=== PATIENT | male | born 1985 | race Caucasian/White ===

== ENCOUNTER → 2020-09-24 | Outpatient (CLI) | payer OTHER ==
--- NOTE | 2020-09-24 16:26 | XR ---
Frontal and lateral spine HISTORY: Pain for 6 days following shoveling Frontal and lateral views of the spine are submitted on a total 7 images Cervical, thoracic, lumbar vertebral bodies show preserved height and bone mineralization. There is m ild spinal curvature present. Disc spaces are remarkable for loss of height at L5-S1, L3-4, mid to lo wer thoracic spine levels. There is multilevel spondylosis in the thoracic spine, lumbar spine. IMPRESSION: Mild degenerative disc disease. Mild spinal curvature.
== END | disposition home or self-care (01) ==
LOC: RADXRMAIN 15:21
DX: M51.16 Intervertebral disc disorders with radiculopathy, lumbar region (principal); M50.10 Cervical disc disorder with radiculopathy, unspecified cervical region; M51.14 Intervertebral disc disorders with radiculopathy, thoracic region; M43.8X2 Other specified deforming dorsopathies, cervical region; M43.8X4 Other specified deforming dorsopathies, thoracic region; M43.8X6 Other specified deforming dorsopathies, lumbar region
CPT/HCPCS: 72082

== ENCOUNTER 2021-01-31 09:50 | Day surgery (SDC) | payer OTHER ==
[2021-01-29 09:40] VITALS: BMI 37.8
[~2021-01-31 09:50] MED LIST: LACTATED RINGERS 1,000 ML IV SCH; LIDOCAINE 1% (10MG/ML) FOR IV START INTRADERMA PRN
[2021-01-31 10:30] VITALS: RESP 16; TEMP 98.6
[2021-01-31] MEDS ORDERED: LIDOCAINE 1% INJ 10MG/ML (20 ML MDV) ONE (11:18)
[2021-01-31] MEDS ORDERED: PROPOFOL 10 MG/ML 20 ML VIAL IV ONE (11:18)
--- NOTE | 2021-01-31 11:21 | P.GSHP ---
History of Present Illness H&P Date: 01/31/21 Chief Complaint: GERD This a 35-year-old male referred from Dr. watson. Patient has GERD that is refractory to medical therapy. He presents today for EGD. Past Medical History Past Medical History: GERD/Reflux, Sleep Apnea/CPAP/BIPAP Additional Past Medical History / Comment(s): pericarditis 3 yrs ago, sever obstructive sleep apnea, History of Any Multi-Drug Resistant Organisms: None Reported Past Surgical History: Orthopedic Surgery Additional Past Surgical History / Comment(s): rt carpal tunnel, rt elbow surgery Past Anesthesia/Blood Transfusion Reactions: No Reported Reaction Smoking Status: Never smoker - Past Family History Father Family Medical History: Cancer Medications and Allergies Home Medications Medication Instructions Recorded Confirmed Type Famotidine [Pepcid] 20 mg PO BID 01/29/21 01/31/21 History Pantoprazole Sodium 20 mg PO BID 01/29/21 01/29/21 History Allergies Allergy/AdvReac Type Severity Reaction Status Date / Time adhesive Allergy red skin Verified 01/31/21 10:30 tobacoo Allergy Unknown Uncoded 01/31/21 10:30 Surgical - Exam Vital Signs Temp Pulse Resp BP Pulse Ox 98.6 F 76 16 133/85 100 01/31/21 10:28 01/31/21 10:28 01/31/21 10:28 01/31/21 10:28 01/31/21 10:28 - General well developed, well nourished, no distress - Eyes PERRL - ENT normal pinna - Neck no masses - Respiratory normal expansion, normal respiratory effort - Cardiovascular Rhythm: regular - Abdomen Abdomen: soft, non tender Assessment and Plan Assessment: GERD. We'll perform EGD.
--- NOTE | 2021-01-31 11:28 | P.OP ---
Date of Procedure: 01/31/21 Preoperative Diagnosis: GERD Postoperative Diagnosis: Antral gastritis Mild esophagitis Small sliding hiatal hernia Procedure(s) Performed: EGD Anesthesia: MAC Surgeon: Patricio Cowan Pathology: other (Antrum, esophagus) Condition: stable Disposition: PACU Description of Procedure: The patient's placed on the endoscopy table in the lateral position. He received IV sedation. The gastroscope oropharynx passed in the esophagus and stomach. Scope some placed through the pylorus. The first and second portion of the duodenum appeared normal. Scope was then brought back the antrum this was mildly inflamed. A biopsies performed. Scope was unretroflexed and remainder the stomach appeared normal. There was a small sliding hiatal hernia. The GE junction was at 38 cm. The distal esophagus appeared inflamed a biopsies performed. The proximal esophagus appeared normal. Due to the minimal endoscopic findings reflux a HIDA scan was ordered.
[2021-01-31 11:50] VITALS: BP 109/61; PULSE 75
== END 2021-01-31 12:07 | disposition home or self-care (01) ==
LOC: ORWHC2ENDO 09:50
PROVIDERS: ATTEND Surgery
DX: K29.50 Unspecified chronic gastritis without bleeding (principal); K44.9 Diaphragmatic hernia without obstruction or gangrene; K21.00 Gastro-esophageal reflux disease with esophagitis, without bleeding; G47.33 Obstructive sleep apnea (adult) (pediatric); Z98.890 Other specified postprocedural states; Z80.9 Family history of malignant neoplasm, unspecified; Z79.899 Other long term (current) drug therapy; Z91.09 Other allergy status, other than to drugs and biological substances
CPT/HCPCS: 88305; 43239; J2001; J2704

== ENCOUNTER → 2021-02-01 | Outpatient (CLI) | payer OTHER ==
--- NOTE | 2021-02-01 09:46 | NM ---
EXAMINATION TYPE: NM hepatobiliary w CCK DATE OF EXAM: 02/01/2021 COMPARISON: NONE HISTORY: Indigestion TECHNIQUE: After the intravenous administration of 4.3 mCi Tc 99m Mebrofenin hepatobiliary scintigrap hy is performed. Immediate images post injection. FINDINGS: There is satisfactory initial accumulation of tracer by the liver. The gallbladder is visualized wit hin 12 minutes. The small bowel activity is noted within 56 minutes. At one hour CCK was administer ed, patient was injected with 2.4 mcg of Kinevac, and gallbladder ejection fraction is calculated at 97%. IMPRESSION: Increased ejection fraction suggests hypercontractile state.
== END | disposition home or self-care (01) ==
LOC: RADNMMAIN 06:49
PROVIDERS: ATTEND Surgery
DX: K30 Functional dyspepsia (principal)
CPT/HCPCS: 78227; A9537; J2805

== ENCOUNTER 2021-02-13 08:21 | Day surgery (SDC) | payer OTHER ==
[2021-02-12 10:21] VITALS: BMI 36.9
[~2021-02-13 08:21] MED LIST changes: +ACETAMINOPHEN TAB 500 MG TAB PO PRN; +DEXAMETHASONE SOD PHOSPHATE 4 MG/ML 1 ML VIAL IV ONE; +HEPARIN SODIUM,PORCINE/PF 5,000 UNIT/0.5 ML SYRINGE SQ PRN; -LACTATED RINGERS 1,000 ML IV SCH; +MIDAZOLAM 2 MG/2 ML VIAL IV PRN
[2021-02-13] MEDS: LACTATED RINGERS 1,000 ML IV SCH ×2 (09:10→09:50)
[2021-02-13] MEDS: ONDANSETRON 4 MG/2 ML VIAL IVP ONE ×2 (09:36→11:49)
--- NOTE | 2021-02-13 10:19 | P.GSHP ---
History of Present Illness H&P Date: 02/13/21 Chief Complaint: Right upper quadrant pain This is a 31 for a male who's had complaints of right quadrant pain. His recent HIDA scan shows abnormal ejection fraction. He presents today for laparoscopic cholecystectomy Past Medical History Past Medical History: GERD/Reflux, Sleep Apnea/CPAP/BIPAP Additional Past Medical History / Comment(s): pericarditis 3 yrs ago, severe obstructive sleep apnea, History of Any Multi-Drug Resistant Organisms: None Reported Past Surgical History: Hernia Repair, Orthopedic Surgery Additional Past Surgical History / Comment(s): rt carpal tunnel, rt elbow surgery, EGD Past Anesthesia/Blood Transfusion Reactions: No Reported Reaction Smoking Status: Never smoker - Past Family History Father Family Medical History: Cancer Medications and Allergies Home Medications Medication Instructions Recorded Confirmed Type Famotidine [Pepcid] 20 mg PO BID 01/29/21 02/13/21 History Pantoprazole Sodium 20 mg PO BID 01/29/21 02/13/21 History Allergies Allergy/AdvReac Type Severity Reaction Status Date / Time adhesive Allergy red skin Verified 02/13/21 08:49 tobacoo Allergy Dyspnea Uncoded 02/13/21 08:49 Surgical - Exam Vital Signs Temp Pulse Resp BP Pulse Ox 98.2 F 74 18 152/86 98 02/13/21 08:55 02/13/21 08:55 02/13/21 08:55 02/13/21 08:55 02/13/21 08:55 - General well developed, well nourished, no distress - Eyes PERRL - ENT normal pinna - Neck no masses - Respiratory normal expansion - Cardiovascular Rhythm: regular - Abdomen Abdomen: soft, non tender Assessment and Plan Assessment: Chronically status. We'll perform laparoscopic cholecystectomy
[2021-02-13] MEDS ORDERED: MIDAZOLAM 2 MG/2 ML VIAL ONE (10:40)
[2021-02-13] MEDS ORDERED: KETAMINE 10 MG/ML 20 ML VIAL ONE (10:40)
[2021-02-13] MEDS ORDERED: fentaNYL (PF) 50 MCG/ML 2 ML AMP ONE (10:40)
[2021-02-13] MEDS ORDERED: LIDOCAINE 1% INJ 10MG/ML (20 ML MDV) ONE (10:40)
[2021-02-13] MEDS ORDERED: KETOROLAC 15 MG/ML 1 ML VIAL ONE (10:40)
[2021-02-13] MEDS ORDERED: SUCCINYLCHOLINE CHLORIDE 100 MG/5 ML SYR IV ONE (10:40)
[2021-02-13] MEDS ORDERED: PROPOFOL 10 MG/ML 20 ML VIAL IV ONE (10:40)
[2021-02-13] MEDS ORDERED: GLYCOPYRROLATE 0.2 MG/ML 2 ML VIAL ONE (10:40)
[2021-02-13] MEDS ORDERED: NEOSTIGMINE 1 MG/ML 10 ML VIAL ONE (10:40)
[2021-02-13] MEDS ORDERED: ROCURONIUM 10 MG/ML (5 ML VIAL) IV ONE (10:40)
[2021-02-13] MEDS ORDERED: BUPIVACAINE (PF) 0.25% 30 ML VIAL SQ ONE ×2 (10:42→10:58)
[2021-02-13 11:32] VITALS: TEMP 98
[2021-02-13] MEDS: HYDROmorphone 0.5 MG/0.5 ML SYRINGE IVP PRN ×3 (11:33→11:46)
--- NOTE | 2021-02-13 11:34 | P.OP ---
Date of Procedure: 02/13/21 Preoperative Diagnosis: Cholecystitis Postoperative Diagnosis: Cholecystitis Procedure(s) Performed: Laparoscopic cholecystectomy Anesthesia: OLU Surgeon: Patricio Cowan Estimated Blood Loss (ml): 5 Pathology: other (Gallbladder) Condition: stable Disposition: PACU Description of Procedure: The patient was placed on the operating table. The patient received a general endotracheal tube anesthesia. The patients abdomen was prepped and draped in the usual sterile fashion. Through an infraumbilical stab incision, the fascia of the anterior abdominal wall was grasped with a pair of Kochers and then the Veress needle was placed in the peritoneal cavity. Position of the Veress needle was confirmed with positive drop test. The abdomen was then insufflated. After adequate insufflation, the 10 mm trocar was placed in the peritoneal cavity. Following this the laparoscope was placed in the peritoneal cavity. The patient was placed in the head-up, right side up position and then a 5 mm trocar was placed in the right lateral and right subcostal position under direct visualization. A 8 mm trocar was placed in the epigastric position. The gallbladder was grasped in the fundus and infundibulum. Traction on the gallbladder was placed in the lateral and the cephalad positions. The triangle of Calot was visualized.. The cystic duct was bluntly dissected until the union of the cystic duct and common bile duct was seen. A critical view of safety was achieved. The cystic duct was then divided and sealed with the Harmonic scissors. A PDS Endoloop was then placed throughout the cystic duct stump. The cystic artery divided and sealed with the Harmonic scissors. The gallbladder was then removed from the liver bed using Harmonic scissors. The gallbladder was then extracted through the epigastric port site. Operative field was checked for any bleeding spots and Harmonic scissors was used to coagulate the liver bed. The abdomen was irrigated. The trocars were removed. The skin was closed using interrupted 3-0 Vicryl suture. Dermabond dressing were applied. The patient tolerated the procedure well.
[2021-02-13 12:04] VITALS: RESP 16
[2021-02-13 12:42] VITALS: BP 122/74; PULSE 71
== END 2021-02-13 13:56 | disposition home or self-care (01) ==
LOC: OR 08:21
PROVIDERS: ATTEND Surgery
DX: K81.9 Cholecystitis, unspecified (principal); K21.9 Gastro-esophageal reflux disease without esophagitis; G47.33 Obstructive sleep apnea (adult) (pediatric); Z79.899 Other long term (current) drug therapy
CPT/HCPCS: 88304; 47562; J2250; J1100; J2710; J0690; J2405; J2001; J3010; J1885; J0330; J2704; J1170; J1644

== ENCOUNTER 2021-03-26 08:45 | Observation (INO) | payer OTHER ==
[2021-03-26] MEDS ORDERED: HEPARIN SODIUM,PORCINE/PF 5,000 UNIT/0.5 ML SYRINGE SQ STA (09:33)
[2021-03-26] MEDS ORDERED: ACETAMINOPHEN TAB 500 MG TAB PO STA (09:34)
[2021-03-26] MEDS ORDERED: LACTATED RINGERS 1,000 ML IV ONE ×2 (09:46→12:52)
[2021-03-26] MEDS ORDERED: LIDOCAINE 1% (10MG/ML) FOR IV START INTRADERMA ONE (09:46)
[2021-03-26] MEDS ORDERED: ONDANSETRON 4 MG/2 ML VIAL ONE (09:57)
--- NOTE | 2021-03-26 10:03 | P.GSHP ---
History of Present Illness H&P Date: 03/26/21 Chief Complaint: GERD This is a 35-year-old male referred from Dr. Rudy Giordano. MinuThe patient has had long-standing problems with reflux esophagitis. The patient underwent recent EGD is found have evidence of esophagitis. Patient has been well informed on the procedure of laparoscopic Lydia fundoplication. The patient is aware the risk of the conversion to the open procedure, risk of injury to the stomach, liver and spleen. The patient is also a risk of recurrent GERD and dysphagia symptoms. The patient understands there is a postoperative diet of full liquids for 2 weeks after surgery. Past Medical History Past Medical History: GERD/Reflux, Sleep Apnea/CPAP/BIPAP Additional Past Medical History / Comment(s): pericarditis 3 yrs ago, severe obstructive sleep apnea - APAP. History of Any Multi-Drug Resistant Organisms: None Reported Past Surgical History: Cholecystectomy, Hernia Repair, Orthopedic Surgery Additional Past Surgical History / Comment(s): rt carpal tunnel, rt elbow ulnar nerve surgery, EGD, Lt inguinal hernia x2 Past Anesthesia/Blood Transfusion Reactions: Postoperative Nausea & Vomiting (PONV) Additional Past Anesthesia/Blood Transfusion Reaction / Comment(s): felt nauseated after last surgery, possibly R/T juice Smoking Status: Never smoker - Past Family History Father Family Medical History: Cancer Additional Family Medical History / Comment(s): skin cancers Medications and Allergies Home Medications Medication Instructions Recorded Confirmed Type Famotidine [Pepcid] 20 mg PO BID 01/29/21 03/26/21 History Pantoprazole Sodium 20 mg PO BID 01/29/21 03/26/21 History Allergies Allergy/AdvReac Type Severity Reaction Status Date / Time adhesive Allergy red skin Verified 03/22/21 15:06 tobacoo Allergy Dyspnea Uncoded 03/22/21 15:06 Surgical - Exam Vital Signs Temp Pulse Resp BP Pulse Ox 98.2 F 79 16 145/78 98 03/26/21 09:34 03/26/21 09:34 03/26/21 09:34 03/26/21 09:34 03/26/21 09:34 - General well developed, well nourished, no distress - Eyes PERRL - ENT normal pinna - Neck no masses - Respiratory normal expansion - Cardiovascular Rhythm: regular - Abdomen Abdomen: soft, non tender Assessment and Plan Assessment: GERD. We'll perform arthroscopic Lydia fundal plication.
[2021-03-26] MEDS ORDERED: GLYCOPYRROLATE 0.2 MG/ML 2 ML VIAL ONE (10:23)
[2021-03-26] MEDS ORDERED: LIDOCAINE 1% INJ 10MG/ML (20 ML MDV) ONE (10:23)
[2021-03-26] MEDS ORDERED: KETAMINE 10 MG/ML 20 ML VIAL ONE (10:23)
[2021-03-26] MEDS ORDERED: NEOSTIGMINE 1 MG/ML 10 ML VIAL ONE (10:23)
[2021-03-26] MEDS ORDERED: KETOROLAC 15 MG/ML 1 ML VIAL ONE (10:23)
[2021-03-26] MEDS ORDERED: fentaNYL (PF) 50 MCG/ML 2 ML AMP ONE (10:23)
[2021-03-26] MEDS ORDERED: ROCURONIUM 10 MG/ML (5 ML VIAL) IV ONE (10:23)
[2021-03-26] MEDS ORDERED: PROPOFOL 10 MG/ML 20 ML VIAL IV ONE (10:23)
[2021-03-26] MEDS ORDERED: HYDROmorphone (PF) 1 MG/ML ONE (10:23)
[2021-03-26] MEDS ORDERED: SUCCINYLCHOLINE CHLORIDE VIAL 200 MG/10 ML VIAL IV ONE (10:23)
[2021-03-26] MEDS ORDERED: MIDAZOLAM 2 MG/2 ML VIAL ONE (10:23)
[2021-03-26] MEDS ORDERED: SODIUM CHLORIDE 0.9% 50 ML with ceFAZolin 2,000 MG IV ONE ×2 (10:25)
[2021-03-26] MEDS ORDERED: BUPIVACAINE (PF) 0.5% 30 ML VIAL SQ ONE (10:51)
--- NOTE | 2021-03-26 11:25 | P.OP ---
Date of Procedure: 03/26/21 Preoperative Diagnosis: GERD Postoperative Diagnosis: GERD Procedure(s) Performed: Laparoscopic Lydia fundoplication Anesthesia: OLU Surgeon: Patricio Cowan Estimated Blood Loss (ml): 5 Pathology: none sent Condition: stable Disposition: PACU Description of Procedure: The patient was placed on the operating table in the supine position. The patient received general anesthesia. And was placed in dorsal lithotomy position. The patient was prepped and draped in the usual sterile fashion. The skin incision sites were anesthetized with 1% local Xylocaine. The skin was incised in the left periumbilical area and then using a blade less 5 mm trocar under direct visualization panel cavity was entered. After adequate insufflation the laparoscope was then placed into the peritoneal cavity. Next a 5 mm trochars placed in the right epigastric position. Another 5 millimeter trocar the right lateral position. Another 5 millimeter trocar in the left lateral position a 5 mm trocar is placed in the left epigastric position. And then the initial 5 mm trocar was exchanged for a 10 mm trocar. The left lateral lobe liver was retracted. The hernia was seen. The crural defect was then dissected using the Harmonic scissors device. A 360 crural dissection was per formed the esophagus stomach was reduced back into the peritoneal Cavity. The crural defect was then closed using 2-0 Ethibond suture. Next the fundus of the stomach was mobilized using the [place] scissors device. and then a 58-Maltese bougie dilator was placed oropharynx passed into the esophagus and stomach the fundal plication wrap was then performed by grasping the fundus posteriorly and bringing it around the esophagus and stomach fundoplication was then performed using 2-0 Ethibond suture. Care was taken that the fundal location rested over top of the intra-abdominal esophagus. There was no injury seen to the stomach or esophagus. The dilator was then withdrawn. The abdomen was irrigated there is no bleeding seen. The trochars were then withdrawn and then skin incision sites were closed using 3-0 Monocryl suture Steri-Strips are applied. Patient thought procedure well and sent to recovery room in stable condition.
[2021-03-26] MEDS ORDERED: HYDROmorphone 0.5 MG/0.5 ML SYRINGE IVP ONE ×2 (12:06→12:47)
[2021-03-26] MEDS ORDERED: SIMETHICONE 40 MG/0.6 ML DROPS 2,000 MG/30 ML BOTTLE PO ONE (12:40)
[2021-03-26 14:54] VITALS: BMI 37.8
[2021-03-26] MEDS: SIMETHICONE 40 MG/0.6 ML DROPS 2,000 MG/30 ML BOTTLE PO SCH ×3 (15:40→20:38)
--- NOTE | 2021-03-26 15:55 | FL ---
EXAMINATION TYPE: FL esophagus cervic/pharynx DATE OF EXAM: 03/26/2021 HISTORY: Postop COMPARISON: NONE TECHNIQUE: A single contrast esophagram is performed utilizing air and barium. A total of 22 second s of fluoroscopic time was utilized during procedure and for images obtained. FINDINGS: The esophagus shows normal motility and emptying into the stomach. No evidence of hiatal hernia or s tricture noted. No significant gastroesophageal reflux was seen during real time performance of this study. There is mild delay at the level of the GE junction. Suggestion of a trace amount of free intr aperitoneal air likely postsurgical. Correlate clinically. IMPRESSION: 1. No evidence of extravasation or obstruction. Very mild delay at the level of the GE junction.
[2021-03-26] MEDS: HYDROmorphone 1 MG/ML 1 ML SYRINGE IVP PRN ×2 (16:02→20:35)
[2021-03-27] MEDS: HYDROmorphone 1 MG/ML 1 ML SYRINGE IVP PRN (04:04)
[2021-03-27] MEDS: SIMETHICONE 40 MG/0.6 ML DROPS 2,000 MG/30 ML BOTTLE PO SCH ×2 (08:03→12:20)
[2021-03-27] MEDS ORDERED: ENOXAPARIN 40 MG/0.4 ML SYRINGE SQ SCH (09:00)
[2021-03-27] MEDS: HYDROcodone/APAP 5-325MG 1 EACH TAB PO PRN ×2 (09:23→13:50)
--- NOTE | 2021-03-27 13:32 | P.DS ---
Providers Expected date of discharge: 03/27/21 Attending physician: Patricio Cowan Consults: 03/26/21 11:25 Consult Physician Routine Consulting Provider: Rudy Park Consult Reason/Comments: Management Do you want consulting provider notified?: Yes Primary care physician: Rudy Park Hospital Course: Discharge diagnosis 1. GERD status post laparoscopic Lydia fundoplication Hospital course This is a 35-year-old male with a known history of GERD. He is status post laparoscopic Lydia fundoplication. Patient tolerated surgery well. Upper GI showed no evidence of extravasation or obstruction. Very mild delay at the level of the GE junction. Patient is tolerating his Lydia clear liquid diet. His pain is controlled. He is up and ambulating. He denies any difficulty with swallowing. He is having flatus. He is afebrile. He is stable for discharge. Please refer to chart for any further details. Physician Plumber Supervisor note has been reviewed by physician. Signing provider agrees with the documented findings, assessment, and plan of care. Patient Condition at Discharge: Stable Plan - Discharge Summary Discharge Rx Participant: Yes New Discharge Prescriptions: New Docusate [Colace] 100 mg PO BID #30 capsule Simethicone 40 mg/0.6 ml Drops [Mylicon Drops] 40 mg PO QID ml HYDROcodone/APAP 5-325MG [Bend 5-325] 1 tab PO Q6HR PRN 3 Days #12 tab PRN Reason: Pain Discontinued Pantoprazole Sodium 20 mg PO BID Famotidine [Pepcid] 20 mg PO BID Discharge Medication List Docusate [Colace] 100 mg PO BID #30 capsule 03/27/21 [Rx] HYDROcodone/APAP 5-325MG [Bend 5-325] 1 tab PO Q6HR PRN 3 Days #12 tab 03/27/21 [Rx] Simethicone 40 mg/0.6 ml Drops [Mylicon Drops] 40 mg PO QID ml 03/27/21 [Rx] Follow up Appointment(s)/Referral(s): Rudy Park DO [Primary Care Provider] - 1 Week Patricio Cowan MD [STAFF PHYSICIAN] - 1 Week Activity/Diet/Wound Care/Special Instructions: No driving while taking Bend No lifting over 10 pounds You may shower. No soaking or tub baths for 2 weeks Very light activity until you are reevaluated at your follow up appointment with your surgeon Discharge Disposition: HOME SELF-CARE
[2021-03-27 14:29] VITALS: BP 136/83; PULSE 90; RESP 17; TEMP 98.4
--- NOTE | 2021-03-27 20:34 | P.CONS ---
History of Present Illness - Reason for Consult Consult date: 03/27/21 Medical management Requesting physician: Patricio Cowan - Chief Complaint Status post laparoscopic Lydia - History of Present Illness This is a 35-year-old gentleman with past medical history of gastroesophageal reflux disease, obstructive sleep apnea, uses CPAP, pericarditis, postop nausea and vomiting, recent laparoscopic cholecystectomy on 02/13/2021 and is status p ost laparoscopic Justino fundoplication. Tolerated procedure well passed esophagram and currently on Lydia clear liquid diet. Tolerating well, denies nausea vomiting or diarrhea. Passing flatus. Denies chest pain, palpitations or shortness of breath. Afebrile. Review of Systems ROS Statement: Those systems with pertinent positive or pertinent negative responses have been documented in the HPI. ROS Other: All systems not noted in ROS Statement are negative. Past Medical History Past Medical History: GERD/Reflux, Sleep Apnea/CPAP/BIPAP Additional Past Medical History / Comment(s): pericarditis 3 yrs ago, severe obstructive sleep apnea - APAP. History of Any Multi-Drug Resistant Organisms: None Reported Past Surgical History: Cholecystectomy, Hernia Repair, Orthopedic Surgery Additional Past Surgical History / Comment(s): rt carpal tunnel, rt elbow ulnar nerve surgery, EGD, Lt inguinal hernia x2 Past Anesthesia/Blood Transfusion Reactions: Postoperative Nausea & Vomiting (PONV) Additional Past Anesthesia/Blood Transfusion Reaction / Comm: felt nauseated after last surgery, possibly R/T juice Past Psychological History: No Psychological Hx Reported Smoking Status: Never smoker Past Alcohol Use History: Occasional Past Drug Use History: None Reported - Past Family History Father Family Medical History: Cancer Additional Family Medical History / Comment(s): skin cancers Medications and Allergies Home Medications Medication Instructions Recorded Confirmed Type Docusate [Colace] 100 mg PO BID #30 capsule 03/27/21 Rx HYDROcodone/APAP 5-325MG [[place]ot 1 tab PO Q6HR PRN 3 Days #12 tab 03/27/21 Rx 5-325] Simethicone 40 mg/0.6 ml Drops 40 mg PO QID ml 03/27/21 Rx [Mylicon Drops] Allergies Allergy/AdvReac Type Severity Reaction Status Date / Time adhesive Allergy red skin Verified 03/22/21 15:06 tobacoo Allergy Dyspnea Uncoded 03/22/21 15:06 Physical Exam Vitals: Vital Signs Temp Pulse Pulse Pulse Resp BP BP 03/27/21 06:47 98.2 F 92 18 148/75 03/27/21 02:45 98.5 F 89 19 129/82 03/26/21 19:16 78 17 03/26/21 19:00 98.6 F 95 19 120/85 03/26/21 16:16 95 17 03/26/21 15:00 85 18 126/78 03/26/21 14:45 68 18 121/80 03/26/21 14:30 81 18 121/81 03/26/21 14:15 90 18 124/83 03/26/21 14:00 98 18 123/87 03/26/21 13:45 100 18 132/90 03/26/21 13:30 77 18 166/91 03/26/21 13:00 95 17 140/85 03/26/21 12:30 68 16 127/79 03/26/21 12:15 62 16 141/81 03/26/21 12:00 76 16 147/88 03/26/21 11:45 73 16 147/88 03/26/21 11:29 98.0 F 80 18 126/68 03/26/21 09:34 98.2 F 79 16 145/78 Pulse Ox 03/27/21 06:47 97 03/27/21 02:45 96 03/26/21 19:16 03/26/21 19:00 98 03/26/21 16:16 03/26/21 15:00 98 03/26/21 14:45 96 03/26/21 14:30 95 03/26/21 14:15 97 03/26/21 14:00 92 L 03/26/21 13:45 92 L 03/26/21 13:30 97 03/26/21 13:00 98 03/26/21 12:30 97 03/26/21 12:15 97 03/26/21 12:00 99 03/26/21 11:45 99 03/26/21 11:29 99 03/26/21 09:34 98 Intake and Output 03/26/21 03/27/21 03/27/21 22:59 06:59 14:59 Other: Voiding Method Toilet Toilet # Voids 3 5 # Bowel Movements 0 PHYSICAL EXAM: VITAL SIGNS: [As above] GENERAL: Sitting up in bed, no acute distress HEENT: Conjunctivae normal. eyes normal. NECK: No JVD. No thyroid enlargement. No LNs CARDIOVASCULAR: S1, S2 regular. No murmur RESPIRATION: Breath sounds diminished in the bases. No rhonchi or crackles. No bronchial breathing. ABDOMEN: Soft, status post surgery ,Bowel sounds heard. LEGS: No edema. no swelling PSYCHIATRY: Alert and oriented X3, mood and affect normal. NERVOUS SYSTEM: Cranial N 2-12 grossly normal. Moves all 4 limbs. No focal deficits. Strength and sensation grossly intact.. Skin: Warm and dry, no rash Assessment and Plan Assessment: Gastroesophageal reflux disease, status post laparoscopic Lydia fundoplication Recent laparoscopic cholecystectomy 02/13/2021 Morbid obesity, BMI 37.8 Obstructive sleep apnea Plan: Continue on current medication regime ,monitoring and symptomatically treatment. Increase ambulation as tolerated. Lydia diet/pain management as per primary/surgery. Patient is expecting to be discharged home today. Follow-up with PCP, Dr. Park in 1 week. Thank you for the consult. The impression and plan of care has been dictated as directed. : I performed a history and examination of this patient, discussed the same with the dictator. I agree with the dictator's note ,documented as a scribe. Any additional findings or plans will be noted.
== END 2021-03-27 14:56 | disposition home or self-care (01) ==
LOC: OR 08:45 → 4SSUR 11:19 → OR 22:09 → 4SSUR 03-27 14:06
PROVIDERS: ADMIT Surgery; ATTEND Surgery
DX: K21.9 Gastro-esophageal reflux disease without esophagitis (principal); G47.33 Obstructive sleep apnea (adult) (pediatric); Z91.048 Other nonmedicinal substance allergy status; Z90.49 Acquired absence of other specified parts of digestive tract; Z86.79 Personal history of other diseases of the circulatory system; Z98.890 Other specified postprocedural states; Z80.8 Family history of malignant neoplasm of other organs or systems
CPT/HCPCS: 74210; 43280; G0378 ×2; J2250; J0330; J2710; J2405; J0690; J2001; J1650; J3010; J1170 ×3; J1885; J2704; J1644

== ENCOUNTER → 2022-03-04 | Outpatient (CLI) | payer OTHER ==
--- NOTE | 2022-03-04 09:42 | CT ---
EXAMINATION TYPE: CT sinus wo con CT DLP: 618.10 mGycm, Automated exposure control for dose reduction was used. DATE OF EXAM: 03/04/2022 9:24 AM COMPARISON: None. CLINICAL INDICATION:Male, 36 years old with history of J32.9 , Chronic sinusitis CONTRAST: None. TECHNIQUE: Multiple thin axial images were obtained through the paranasal sinuses without the use of IV contrast. Additional coronal and sagittal reformatted images were submitted for evaluation. FINDINGS: Frontal sinuses: Normally developed and aerated. Frontal Recess: Clear Modified [place]-Ino Score: Right 0 = 0% Opacified, Left 0 = 0% Opacified Maxillary Sinuses: Normally developed, mucosal retention cysts bilaterally. Modified Donovan-Blo[place] Score: Right 1 = 1-25% Opacified, Left 1 = 1-25% Opacified Maxillary Infundibula([facility]): Clear, No Ramesh cells identified. Modified [place]-Ino Score: Right 0 = Completely patent, Left 0 = Completely patent Ethmoid sinuses: Normally developed and aerated. Ethmoidal notch: Unprotected anterior ethmoidal neeta ry bilaterally. Modified [place] Score: Anterior Right 0 = 0% Opacified, Left 0 = 0% Opacified Posterior Right 0 = 0% Opacified, Left 0 = 0% Opacified Sphenoid sinuses: Normally developed and aerated. There is sellar sphenoid sinus pneumatization witho ut evidence of dehiscence. No dehiscence of carotid canal. No evidence of optic nerve dehiscence wit hin the sphenoid sinus. No evidence of Onodi cells. Sphenoethmoidal recesses: Clear. Modified [place] Score: Right 0 = 0% Opacified, Left 0 = 0% Opacified. Nasal septum: Within normal limits. Nasal Turbinates: Within normal limits. Mastoid air cells & middle ears: The air cells are clear. The middle ears are grossly unremarkable. Modified Soft tissues & Brain: Partially seen without gross abnormality. Globes are intact. Other: Cribriform plate demonstrates symmetric Keros classification type 2 cribriform plate. No evidence of bony dehiscence of skull base. Lamina papyracea is intact without evidence of remote orbital fracture or orbital prolapse into the e thmoid sinus. IMPRESSION: 1. No significant mucosal sinus disease, bilateral maxillary sinus is retention cysts. 2. The ostiomeatal units, frontonasal and sphenoethmoidal recesses are clear. 3. Opacification burden of 2/54 on the Modified Donovan-Ino scoring system.
== END | disposition home or self-care (01) ==
LOC: RADCTMAIN 09:07
PROVIDERS: ATTEND Otolaryngology
DX: J32.9 Chronic sinusitis, unspecified (principal)
CPT/HCPCS: 70486

== ENCOUNTER 2022-04-30 06:13 | Day surgery (SDC) | payer OTHER ==
[2022-04-28 11:49] VITALS: BMI 38.4
[~2022-04-30 06:13] MED LIST changes: -ACETAMINOPHEN TAB 500 MG TAB PO PRN; +DEXAMETHASONE SOD PHOSPHATE 4 MG/ML 1 ML VIAL IV PRN; +FAMOTIDINE 20 MG/2 ML VIAL IV PRN; -HEPARIN SODIUM,PORCINE/PF 5,000 UNIT/0.5 ML SYRINGE SQ PRN; +LACTATED RINGERS 1,000 ML IV SCH; +ONDANSETRON 4 MG/2 ML VIAL IVP ONE; +ONDANSETRON 4 MG/2 ML VIAL IVP PRN
[2022-04-30] MEDS: OXYMETAZOLINE 0.05% NASL SPRAY 1 SPRAY BOTTLE EA NOSTRIL PRN ×5 (07:00→07:20)
[2022-04-30] MEDS ORDERED: SUCCINYLCHOLINE CHLORIDE 200 MG/10 ML VIAL IV ONE (07:20)
[2022-04-30] MEDS ORDERED: MIDAZOLAM 2 MG/2 ML VIAL ONE (07:20)
[2022-04-30] MEDS ORDERED: PROPOFOL 10 MG/ML 20 ML VIAL IV ONE (07:20)
[2022-04-30] MEDS ORDERED: fentaNYL (PF) 50 MCG/ML 2 ML AMP ONE (07:20)
[2022-04-30] MEDS ORDERED: LIDOCAINE 2% INJ 20 MG/ML (2 ML VIAL) ONE (07:20)
[2022-04-30] MEDS ORDERED: DEXAMETHASONE SOD PHOSPHATE 10 MG/ML 1 ML VIAL ONE (07:20)
[2022-04-30] MEDS ORDERED: LIDOCAINE 1%-EPI 1:100,000 20 ML VIAL SUBMUCOSAL ONE ×2 (07:41)
--- NOTE | 2022-04-30 08:22 | P.OP ---
Date of Procedure: 04/30/22 Preoperative Diagnosis: Deviated nasal septum Chronic sinusitis Postoperative Diagnosis: Same Procedure(s) Performed: Septoplasty Bilateral endoscopic sinus surgery including bilateral maxillary antrostomy with removal of tissue from the maxillary sinuses Anesthesia: OLU Surgeon: Juan Lynn Estimated Blood Loss (ml): 5 Pathology: other (Nasal septal bone and cartilage and sinus contents) Condition: stable Disposition: PACU Indications for Procedure: Is a 37-year-old white male whose had difficulties with chronic nasal airway obstruction and chronic sinusitis with CT showing evidence of chronic sinusitis in the maxillary sinuses Operative Findings: Nasal septum deviated to the left with obstruction of the ostiomeatal complexes bilaterally and small to medium size cysts in the maxillary sinuses bilaterally Description of Procedure: The patient was brought into the operative suite and placed in a supine position. The patient underwent induction of general anesthesia with oral endotracheal intubation without difficulty. The patient was prepped and draped in the usual aseptic fashion with the orbits in the operating field for monitoring to the case and the computed tomography scan was on the computer screen for review throughout the case. 1% lidocaine with 1 :100,000 epinephrine was infused submucosally into both sides of the nasal septum as well as the lateral nasal wall and anterior tips of the middle turbinates. While this was taking vasoconstrictive effect the inferior turbinates were infractured with Kerr elevator and partial submucous resection of the inferior turbinates was performed with a portion of the submucosal soft tissue and the inferior turbinate bone removed with Coblation device. The inferior turbinates were then outfractured with the Kerr elevator. A left hemitransfixion incision was then made with the mucoperichondrial and mucoperiosteal flap on the left elevated. The bony cartilaginous junction was disarticulated and the mucoperiosteal flap on the right was elevated. Bony nasal septal deformities were removed with Lissette forceps and an inferior cartilaginous strip was removed leaving a full 1.5 cm caudal strut. Checking intranasally this corrected the nasoseptal deformities and the hemitransfixion incision was closed with a running 4-0 chromic suture. Full 0 endoscopic examination is performed bilaterally. Beginning on the left, the middle turbinate was medialized. The maxillary ostium was located with a ballpoint probe and an infundibulotomy was performed followed by uncinectomy. The maxillary antrostomy was enlarged at the expense of the anteri or and posterior fontanelle taking care anteriorly not to injure the lacrimal bone. The maxillary sinus was evaluated with 30 and 70 endoscope .[Abnormal appearing tissue was removed from the maxillary sinus]. Attention was then turned to the right where the procedures were followed as they had been on the left including medialization of the middle turbinate, infundibulotomy uncinectomy maxillary antrostomy and removal of tissue from the right maxillary sinus with [Nasopore nasal dressing was placed in the middle meatus bilaterally under direct visualization]. Bilateral Robins airway splints coated with bacitracin ointment were placed and sutured transseptally with a 4-0 nylon suture. The patient was suctioned in oral gastric fashion and was allowed to emerge from general anesthesia having tolerated procedure well and was extubated in the operating suite and transferred to the postoperative recovery area in satisfactory condition.
[2022-04-30 08:37] VITALS: TEMP 97
[2022-04-30] MEDS: HYDROmorphone 0.5 MG/0.5 ML SYRINGE IVP PRN ×2 (08:39→09:01)
[2022-04-30 09:47] VITALS: BP 154/95; PULSE 92; RESP 16
[2022-04-30] MEDS ORDERED: HYDROcodone/APAP 5-325MG 1 EACH TAB PO ONE (09:57)
[2022-04-30] MEDS ORDERED: HYDROcodone/APAP 5-325MG 1 EACH TAB ONE (09:57)
== END 2022-04-30 10:29 | disposition home or self-care (01) ==
LOC: OR 06:13
PROVIDERS: ATTEND Otolaryngology
DX: J34.2 Deviated nasal septum (principal); J32.9 Chronic sinusitis, unspecified; G47.33 Obstructive sleep apnea (adult) (pediatric); K21.9 Gastro-esophageal reflux disease without esophagitis; F10.10 Alcohol abuse, uncomplicated; Z98.890 Other specified postprocedural states; Z99.89 Dependence on other enabling machines and devices; Z79.899 Other long term (current) drug therapy; Z82.5 Family history of asthma and other chronic lower respiratory diseases; Z82.49 Family history of ischemic heart disease and other diseases of the circulatory system; Z83.49 Family history of other endocrine, nutritional and metabolic diseases
CPT/HCPCS: 31267; 30520; 88305; 88300; J2250; J0330; J1100 ×2; J0690; J2405; J3010; J2704; J1170; J2001

== ENCOUNTER 2023-03-06 13:14 | Day surgery (SDC) | payer OTHER ==
[~2023-03-06 13:14] MED LIST changes: -DEXAMETHASONE SOD PHOSPHATE 4 MG/ML 1 ML VIAL IV ONE; -DEXAMETHASONE SOD PHOSPHATE 4 MG/ML 1 ML VIAL IV PRN; -FAMOTIDINE 20 MG/2 ML VIAL IV PRN; -LACTATED RINGERS 1,000 ML IV SCH; -MIDAZOLAM 2 MG/2 ML VIAL IV PRN; -ONDANSETRON 4 MG/2 ML VIAL IVP ONE
[2023-03-06] MEDS: LACTATED RINGERS 1,000 ML IV SCH ×2 (13:38→14:16)
[2023-03-06 13:44] VITALS: RESP 16; TEMP 98.8
[2023-03-06] MEDS ORDERED: LIDOCAINE 2% INJ 20 MG/ML (2 ML VIAL) ONE (14:17)
[2023-03-06] MEDS ORDERED: PROPOFOL 10 MG/ML 20 ML VIAL IV ONE (14:17)
--- NOTE | 2023-03-06 14:26 | P.PCN ---
Date of Procedure: 03/06/23 Procedure(s) Performed: BRIEF HISTORY: Patient is a 37-year-old, pleasant, white female scheduled for an upper endoscopy as a part of evaluation of from nausea abdominal discomfort and intermittent episodes of diarrhea every time he eats gluten. His concern about celiac disease and hence scheduled for an upper endoscopy with small bowel biopsies.. PROCEDURE PERFORMED: Esophagogastroduodenoscopy with biopsy. PREOPERATIVE DIAGNOSIS: Nausea vomiting, abdominal pain and intermittent diarrhea. IV sedation per anesthesia. PROCEDURE: After informed consent was obtained, the patient was brought into the endoscopy unit. IV sedation was administered by Anesthesia under continuous monitoring. Initially the Olympus GIF-140 video endoscope was inserted into the mouth. Esophagus intubated without any difficulty. It was gradually advanced into the stomach and duodenum and carefully examined. The bulb and the second part of the duodenum appeared normal. Biopsies were done from the duodenum to evaluate for celiac disease. The scope at this time was withdrawn to the stomach, adequately insufflated with air, and upon careful examination, mucosa of the antrum, had minimal gastritis and biopsies were done from this area. Mucosa of the body, cardia and the fundus appeared normal. The previous Lydia fundoplication appeared intact. The scope was then withdrawn into the esophagus. The GE junction was located at 41 cm from the incisors. The esophagus appeared normal. There were no erosions or ulcerations seen and the patient tolerated the procedure well. IMPRESSION: 1. Mild antral gastritis. 2. Intact Lydia fundoplication 3. Normal-appearing duodenum status post multiple biopsies to evaluate for celiac disease. RECOMMENDATIONS: The findings of this examination were discussed with the patient as well as his family. He was advised to follow with the biopsy results. Follow up in office as needed..
[2023-03-06] MEDS ORDERED: IV FLUID CONTINUATION 400 ML IV ONE (14:32)
[2023-03-06 15:00] VITALS: BP 117/76; PULSE 85
== END 2023-03-06 15:19 | disposition home or self-care (01) ==
LOC: ORWHC2ENDO 13:14
PROVIDERS: ATTEND Internal Medicine Gastroenterology
DX: K29.50 Unspecified chronic gastritis without bleeding (principal); E78.5 Hyperlipidemia, unspecified; G47.33 Obstructive sleep apnea (adult) (pediatric); K21.9 Gastro-esophageal reflux disease without esophagitis; Z98.890 Other specified postprocedural states; Z79.899 Other long term (current) drug therapy
CPT/HCPCS: 43239; J2704; J2001; 88305

== ENCOUNTER → 2023-04-22 | Outpatient (CLI) | payer OTHER ==
--- NOTE | 2023-04-22 15:01 | P.SLEEP ---
History of Present Illness DATE: 04/22/2023 CONSULTATION/NEW PATIENT EVALUATION HISTORY OF PRESENT ILLNESS/SLEEP-WAKE EVALUATION: 37-year-old gentleman had been evaluated in the sleep center for obstructive sleep apnea hypopnea syndrome. Patient has history of obstructive sleep apnea [place] He is using his CPAP equipment, but recently developed multiple awakenings from sleep and sleepiness during the day which was not present when she started treatment. Patient increased his weight on about 108 pounds. She was not able to get supplies from [employer]. SLEEP SCHEDULE: Usually sleep schedule from 910 PM until 89 AM on working days and from 1012 until 7-9 a.m. on weekend. FALLING ASLEEP: Sometimes patient has difficulties with falling asleep, although no TV in bedroom. DURING SLEEP: She snores while using his CPAP and wakes up from sleep up to 6 times with up to 3 episodes of nocturia No history of hypnogogical hallucinations, sleep paralysis, or cataplexy. DURING THE DAY/WAKE STATE: In the morning patient wake up tired, falling asleep during the day. [place] sleepiness scale is borderline 9. Usually patient doesn't take naps. PAST MEDICAL HISTORY: Nasal polyps, carpal tunnel syndrome, acid reflux. PAST SURGICAL HISTORY: Cholecystectomy, appendectomy, surgery for nasal septum deviation and polyps, surgery for carpal tunnel syndrome on the right side. MEDICATIONS: None. SOCIAL HISTORY: Negative for smoking, alcohol consumption occasional. FAMILY HISTORY: Hypertension, heart problems, asthma, cancer, mental illness. REVIEW OF SYSTEMS: Snoring, multiple awakenings from sleep, sleepiness during the day. No fevers. No double vision. No recent chest pain. No shortness of breath. No abdominal pain. No bleeding episodes. No blood in urine. No seizure episodes. PHYSICAL EXAMINATION: GENERAL: A pleasant patient without any distress. VITAL SIGNS: BP 144/84, HR 93, RR 20, weight 270.0 pounds, height 5 foot 8 inches, body mass index 41.0. HEENT: PERRLA, EOMI. Evaluation of oropharynx showed tongue protrudes midline, low position of soft palate Mallampati 4. NECK: Supple. No JVD. Thyroid is not palpable. 19.5 inches in circumference. LUNGS: Clear to percussion and to auscultation. Good air exchange. No wheezing or rhonchi. HEART: S1, S2 regular. No murmurs, gallops or rubs. ABDOMEN: Soft and nontender. Bowel sounds are present. No organomegaly appreciated. Obese. EXTREMITIES: No clubbing or cyanosis. [employer]CHNICIAN: Awake, alert, and oriented x3. Cranial nerves 2 to 7 intact. There is no fasciculation or atrophy noted. No focal deficits observed. ASSESSMENT: 1. Snoring, multiple awakenings from sleep even while using CPAP, extremely low position of soft palate Mallampati 4, extremely wide neck 19.5 inches in circumference. History of obstructive sleep apnea, but results of previous sleep study is not available for us. Obstructive sleep apnea-hypopnea syndrome. 2. Obesity BMI 41.0. Patient increased his weight on around 108 pounds for last several years. 3. History of carpal tunnel syndrome, status post surgical treatment on the r ight side. 4. Status post nasal surgery for nasal septum deviation and polyps. 5 acid reflux. 6 . Status post cholecystectomy. 7. Status post appendectomy. PLAN: 1. Polysomnography for evaluation of patient's breathing during sleep. 2. CPAP/BiPAP titration if sleep study confirms obstructive sleep apnea- hypopnea syndrome. 3. Preferable position during sleep on the side. 4. No driving if patient feels any sleepiness. Patient is aware of civil and criminal liability for unsafe driving. 5. Sleep hygiene with regular sleep time for at least 7.5-8 hours. 6. Watching and losing weight. Thank you very much for referring this patient for consultation. Sincerely, Marcelo Sherman MD, PhD, FAASM. Diplomat of [place] [employer], Sleep Medicine Board by [place] [employer] [place] [employer] [facility] [place] Past Medical History Past Medical History: GERD/Reflux, Hyperlipidemia, Sleep Apnea/CPAP/BIPAP Additional Past Medical History / Comment(s): Hx Pericarditis. CPAP use. when pt eats wheat gets stomach ache and diarrhea- stopped eating gluten in september 2022 and sx resolved, has had celiac test which was negative, coming in for biopsy. changed diet to improve cholesterol History of Any Multi-Drug Resistant Organisms: None Reported Past Surgical History: Cholecystectomy, Hernia Repair, Orthopedic Surgery Additional Past Surgical History / Comment(s): Right carpal tunnel, right elbow ulnar nerve surgery, EGD, left inguinal hernia repair X2 and one other hernia repair. rt index finger trigger release, Past Anesthesia/Blood Transfusion Reactions: Postoperative Nausea & Vomiting (PONV) Additional Past Anesthesia/Blood Transfusion Reaction / Comment(s): PONV only with gallbladder surgery. pt's dad wakes up during anesthesia. Smoking Status: Never smoker - Past Family History Father Family Medical History: Cancer, Hypertension Additional Family Medical History / Comment(s): Skin cancers. Mother Additional Family Medical History / Comment(s): low BP Medications and Allergies Home Medications Medication Instructions Recorded Confirmed Type Acetaminophen [Tylenol Extra 1,000 mg PO DIRECTED 02/27/23 02/27/23 History Strength] Allergies Allergy/AdvReac Type Severity Reaction Status Date / Time adhesive Allergy red skin Verified 03/06/23 13:29 ibuprofen [From Motrin] AdvReac upset Verified 03/06/23 13:29 stomach tobacco Allergy Dyspnea Uncoded 03/06/23 13:29 Sleep Note - Sleep Note Sleep Note: Temperature: Pulse Rate: Respiratory Rate: Blood Pressure: SpO2: Height: Weight: BMI: Neck Circumference:
== END ==
LOC: 3 N SLEEP 13:24
PROVIDERS: ATTEND Internal Medicine
DX: G47.33 Obstructive sleep apnea (adult) (pediatric) (principal); E66.9 Obesity, unspecified; G56.01 Carpal tunnel syndrome, right upper limb; K21.9 Gastro-esophageal reflux disease without esophagitis; Z98.890 Other specified postprocedural states; Z68.41 Body mass index [BMI] 40.0-44.9, adult; Z90.49 Acquired absence of other specified parts of digestive tract; Z90.89 Acquired absence of other organs; Z91.048 Other nonmedicinal substance allergy status; Z88.6 Allergy status to analgesic agent; Z88.4 Allergy status to anesthetic agent
CPT/HCPCS: 99211

== ENCOUNTER → 2023-05-25 | Outpatient (CLI) | payer OTHER | LOC: 3 N SLEEP 11:08 | PROVIDERS: ATTEND Internal Medicine | DX: G47.33 Obstructive sleep apnea (adult) (pediatric) (principal); Z91.048 Other nonmedicinal substance allergy status; Z88.6 Allergy status to analgesic agent; Z88.8 Allergy status to other drugs, medicaments and biological substances ==